=== PATIENT | male | born 2000 | race Caucasian/White ===

== ENCOUNTER 2021-01-24 22:31 | Emergency (ER) | payer OTHER ==
--- OUTSIDE RECORDS SUMMARY | 2021-01-24 22:35 | XMS REPORT | Continuity of Care Document ---
:2000 Author Organization [facility] t Address [address] [place] [address] Care Team Providers Name Role Phone Pcp Primary Care Physician Unavailable Payers Payer Name Policy Type Policy Number Effective Date Expiration Date S ource Problems This patient has no known problems. Allergies, Adverse Reactions, Alerts Allergy Allergy Status Severity Reaction(s) Onset Inactive Treating Comm ents Source Name Type Date Date Clinician sumatrip DA Active SV 2019-0 [facility] Sumatrip Propensi Active Anaphylaxis [address] [facility] 9[facility]16 [facility] adverse [facility]: Medical e reaction 00 Center s Social History Social Habit Start Date Stop Date Quantity Comments Source Sex Assigned At [facility] Tobacco use and 2019-06-03 2019-06-03 Never used [facility] ke - exposure 00:00:00 00:00:00 [facility] Alcohol intake 2019-06-03 2019-06-03 Current drinker [facility] - 00:[facility]:00 [facility]00 of [facility] (finding) Tobacco Comment 2019-02-19 2019-02-19 VAPE [facility] Aster kes - 00:00:00 00:00:00 [facility] Smoking Status Start Date Stop Date Source Current every day smoker 2019-06-03 00:00:00 [facility] Medications Ordered Filled Start Stop Current Ordering Indication Dosage Frequency Signature Comments Components Source Medication Medication Date Date Medication? Clinician (SIG) Name Name chris 2018-06 Yes 10mL Take [address] [facility] mine-pseudo 2-29 mLs by [facility] - eph-DM 00:00: mouth Medical (BROMFED 00 every 4 Center DM) 2-30-10 (four) mg/5 mL hours. Syrp Procedures This patient has no known procedures. Plan of Care Planned Activity Planned Date Details Comments Source Future Scheduled 2020-02-05 INFLUENZA VACCINE (#1) [facility] - Test 00:00:00 [code = INFLUENZA Medical Ce nter VACCINE (#1)] Future Scheduled 2007 PNEUMOCOCCAL VACCINE [facility] - Test 00:00:00 0-64 YRS (1 of 1 - Medical C enter PPSV23) [code = PNEUMOCOCCAL VACCINE 0-64 YRS (1 of 1 - PPSV23)] Results Test Description Test Time Test Comments Results Result Comments Source - XR KNEE 3 V LT 2019-09-18 FAX: Don Espinoza 12:40:00 Rahel SOLORZANO [phone] [place]roleum: [place] St: REG Name: ANTHONY CABAN [facility] FSED : 2000 Age/S: 19/M [address] Unit #: [id number] Loc: [facility] [address] Phys: Don Espinoza MD [place], [place] [address] Acct: [id number] Dis Date: Status: REG ER PHONE #: Exam Date: 09/18/2019 1234 FAX #: Reason: trauma EXAMS: CPT CODE: [id number] XR KNEE 3 V LT 11145 CLINICAL HISTORY: trauma TECHNIQUE: 3 views of the left knee COMPARISON: None FINDINGS: No acute fracture. Bony trabecular pattern is unremarkable. No cortical destruction or periosteal reaction. No joint effusion is present. No stranding in Hoffa's fat pad. There is swelling of the prepatellar soft tissues. IMPRESSION: Soft tissue swelling in the left knee but no acute bony abnormality and no joint effusion is seen. Location: [facility] at 1240 Reported and signed by: Vidal Ybarra MD CC: Don Espinoza MD Technologist: ADELINA ROBLEDO RT(R)(CT) Trnscrd Date/Time/By: 09/18/2019 ([id number]) : By: [email or web address] Orig Print D/T: S: 09/18/2019 (0173) PAGE 1 Signed Report
--- NOTE | 2021-01-25 00:36 | ER ---
Nurse's Notes [facility] Name: Sandor Rosenberg Age: 20 yrs Sex: Male : 2000 Arrival Date: 01/24/2021 Time: 22:38 Bed 12 Private MD: Diagnosis: Coronavirus infection, unspecified Presentation: 01/24 22:46 Chief complaint: Patient states: Cough, Headache, Chills, SOB, Fatigue x 2 days. Pt kg vijay has COVID. Coronavirus screen: Client denies travel out of the [place] in the last 14 days. At this time, unable to obtain information related to travel outside the [place] Ebola Screen: Patient negative for fever greater than or equal to 101.5 degrees Fahrenheit, and additional compatible Ebola Virus Disease symptoms Patient denies exposure to infectious person. Patient denies travel to an Ebola-affected area in the 21 days before illness onset. Initial Sepsis Screen: Does the patient meet any 2 criteria? No. Patient's initial sepsis screen is negative. Does the patient have a suspected source of infection? No. Patient's initial sepsis screen is negative. Risk Assessment: Do you want to hurt yourself or someone else? Patient reports no desire to harm self or others. Onset of symptoms was January 22, 2021. 22:46 Method Of Arrival: Ambulatory kg 22:46 Acuity: MABEL 4 kg Triage Assessment: 22:48 General: Appears in no apparent distress. Behavior is calm, cooperative, appropriate kg for age, quiet. Pain: Complains of pain in Head Pain radiates to Generalized Pain currently is 7 out of 10 on a pain scale. at worst was 9 out of 10 on a pain scale. Historical: - Allergies: 22:48 Imitrex; kg - Home Meds: 22:48 None [Active]; kg - PMHx: 22:48 Asthma; Migraine; kg - PSHx: 22:48 None; kg - Immunization history:: Adult Immunizations up to date, Client reports receiving the 1st dose of the Covid vaccine, Client reports receiving the 1st dose of the Covid vaccine, August 23, 2020 [employer]. - Social history:: Smoking status: Reported history of juuling and/or vaping. Patient uses alcohol, occasionally. street drugs, marijuana. Screenin:50 Abuse screen: Denies threats or abuse. Denies injuries from another. Nutritional kg screening: No deficits noted. Tuberculosis screening: No symptoms or risk factors identified. Fall Risk None identified. Assessment: 01/25 00:20 General: Appears in no apparent distress. uncomfortable, ill, Behavior is calm, em cooperative. Neuro: Level of Consciousness is awake, alert, Oriented to person, place, time, situation. Respiratory: Airway is patent Respiratory effort is even, unlabored, Respiratory pattern is regular, symmetrical. Derm: Skin is intact, is healthy with good turgor, Skin is pink, warm \T\ dry. Musculoskeletal: Capillary refill < 3 seconds, Range of motion: intact in all extremities. Vital Signs: 01/24 22:46 BP 103 / 64; Pulse 83; Resp 20; Temp 98.5; Pulse Ox 99% on R/A; Weight 81.65 kg (R); kg Height 6 ft. 0 in. (182.88 cm) (R); Pain 7/10; 22:46 Body Mass Index 24.41 (81.65 kg, 182.88 cm) kg ED Course: 22:38 Patient arrived in ED. as 22:48 Triage completed. kg 22:48 Arm band placed on right wrist. kg 22:50 Patient has correct armband on for positive identification. kg 22:50 No provider procedures requiring assistance completed. kg 23:01 Dion Kim PA is PHCP. [facility] 23:01 Adan Holman MD is Attending Physician. [facility] 01/25 00:20 Houston Abdalla, RN is Primary Nurse. em Administered Medications: No medications were administered Outcome: 00:36 Discharge ordered by . [facility] 00:44 Patient left the ED. em Signatures: Dion Kim PA PA [facility] Houston Abdalla, RN RN em Ashely Ding Kristen, DC RN kg
--- NOTE | 2021-01-25 00:36 | EDPHYS ---
Physician Documentation [facility] Name: Sandor Rosenberg Age: 20 yrs Sex: Male : 2000 Arrival Date: 01/24/2021 Time: 22:38 Bed 12 Private MD: ED Physician Adan Holman HPI: 01/25 00:34 This 20 yrs old Male presents to ER via Ambulatory with complaints of r/o jmm covid. 00:34 The patient or guardian reports cough. Onset: The symptoms/episode began/occurred jmm gradually, 3 day(s) ago. Modifying factors: The symptoms are alleviated by nothing. the symptoms are aggravated by nothing. Associated signs and symptoms: Pertinent positives: fever, rhinorrhea. The patient has not experienced similar symptoms in the past. Is a 20-year-old male with no chronic medical conditions the presents emerged part with complaints of cough, congestion began approximately 3 days ago along with fatigue.. Historical: - Allergies: 01/24 22:48 Imitrex; kg - Home Meds: 22:48 None [Active]; kg - PMHx: 22:48 Asthma; Migraine; kg - PSHx: 22:48 None; kg - Immunization history:: Adult Immunizations up to date, Client reports receiving the 1st dose of the Covid vaccine, Client reports receiving the 1st dose of the Covid vaccine, August 23, 2020 [employer] - Social history:: Smoking status: Reported history of juuling and/or vaping. Patient uses alcohol, occasionally. street drugs, marijuana. ROS: 01/25 00:34 Constitutional: Positive for body aches, fatigue, fever. jm Respiratory: Positive for cough. All other systems are negative. Exam: 00:34 Constitutional: This is a well developed, well nourished patient who is awake, alert, jmm and in no acute distress. Head/Face: atraumatic. Eyes: EOMI, no conjunctival erythema appreciated ENT: Moist Mucus Membranes Neck: Trachea midline, Supple Chest/axilla: Normal chest wall appearance and motion. Cardiovascular: Regular rate and rhythm. No edema appreciated Respiratory: Normal respirations, no respiratory distress appreciated Abdomen/GI: Non distended, soft Back: Normal ROM Skin: General appearance color normal MS/ Extremity: Moves all extremities, no obvious deformities appreciated, no edema noted to the lower extremities Neuro: Awake and alert, normal gait Psych: Behavior is normal, Mood is normal, Patient is cooperative and pleasant Vital Signs: 01/24 22:46 BP 103 / 64; Pulse 83; Resp 20; Temp 98.5; Pulse Ox 99% on R/A; Weight 81.65 kg (R); kg Height 6 ft. 0 in. (182.88 cm) (R); Pain 7/10; 22:46 Body Mass Index 24.41 (81.65 kg, 182.88 cm) kg MDM: 01/25 00:34 Patient medically screened. [facility] 00:35 Data reviewed: vital signs, nurses notes. Counseling: I had a detailed discussion with solis the patient and/or guardian regarding: the historical points, exam findings, and any diagnostic results supporting the discharge/admit diagnosis, lab results, the need for outpatient follow up, to return to the emergency department if symptoms worsen or persist or if there are any questions or concerns that arise at home. ED course: Patient is alert and nontoxic in appearance in the ER. I discussed all labs and imaging studies with the patient. Patient will follow up with their primary care provider. Patient understood and agrees with plan of care.. 01/25 00:17 Order name: SARS-COV-2 RT PCR; Complete Time: 00:37 EDMS Administered Medications: No medications were administered Disposition: 05:35 Co-signature as Attending Physician, Adan Holman MD. 7 Disposition Summary: 01/25/21 00:36 Discharge Ordered Location: Home [facility] Condition: Stable [facility] Diagnosis - Coronavirus infection, unspecified [facility] Followup: [facility] - With: Private Physician - When: 2 - 3 days - Reason: Recheck today's complaints, Continuance of care, Re-evaluation by your physician Discharge Instructions: - Discharge Summary Sheet [facility] - COVID-19 [facility] Forms: - Medication Reconciliation Form [facility] - Thank You Letter [facility] - Antibiotic Education [facility] - Prescription Opioid Use [facility] Prescriptions: - ivermectin 3 mg Oral tablet - take 6 tablet by ORAL route as directed Please take 6 tabs now and another 6 jmm tabs on day 3; 12 tablet; Refills: 0, Product Selection Permitted Signatures: Dispatcher [employer] EDMS Dion Kim PA PA jmm Holmes, Maurice, MD MD 7 Kaitlyn Burton, DC RN kg Corrections: (The following items were deleted from the chart) 01/24 23:04 22:55 CORONAVIRUS+BRZ ordered. EDMS EDMS
[2021-01-25 00:50] VITALS: BP 103/64; TEMP 98.5; O2SAT 99
== END 2021-01-25 00:44 | disposition home or self-care (01) ==
LOC: ER 22:31
DX: U07.1 COVID-19 (principal); J45.909 Unspecified asthma, uncomplicated; Z88.8 Allergy status to other drugs, medicaments and biological substances
CPT/HCPCS: 99281; U0003